=== PATIENT | female | born 1960 | race Two or more races ===

== ENCOUNTER 2022-02-26 17:40 | Inpatient (IN) | payer OTHER ==
[~2022-02-26] VITALS: Ht 172.7 cm; Wt 104.3 kg
[2022-02-26 18:05] LABS: BASOPHILS % (AUTO) 0.4 % (0.0-2.0); EOSINOPHILS % (AUTO) 2.4 % (0.0-6.0); HEMATOCRIT 37 % (33-45); HEMOGLOBIN 11.6 g/dL (11.5-14.8); LYMPHOCYTES # (AUTO) 1.2 K/uL (0.8-4.8); LYMPHOCYTES % (AUTO) 19.9 % (20.0-44.0); MEAN CORPUSCULAR HGB CONC 31 g/dl (31.0-36.0); MEAN CORPUSCULAR VOLUME 91 fL (82-100); MONOCYTES # (AUTO) 0.4 K/uL (0.1-1.30); MONOCYTES % (AUTO) 6.7 % (2.0-12.0); NEUTROPHILS # (AUTO) 4.3 K/uL (1.8-8.9); NEUTROPHILS % (AUTO) 70.6 % (43.0-81.0); PLATELET COUNT (AUTO) 120 K/uL (150-450); RED BLOOD CELL COUNT(AUTO) 4.08 MIL/uL (4.0-5.2); WHITE BLOOD COUNT (AUTO) 6.1 K/uL (4.3-11.0)
--- NOTE | 2022-02-26 18:10 | NUR ---
COVID TEST COLLECTED AND SENT
[2022-02-26 18:26] LABS: SERUM AMMONIA 32 umol/L (11-32)
--- NOTE | 2022-02-26 18:26 | NUR ---
PT CHANGED FROM NONREBREATHER TO NASAL CANULA PER DR KAMINSKI ORDERS, PT TOLERATING WELL AT 6L
--- NOTE | 2022-02-26 18:29 | NUR ---
URINE COLLECTED AND SENT
[2022-02-26 18:31] LABS: ALANINE AMINOTRANSFERASE 11 U/L (12-78); ALBUMIN 3.3 g/dL (3.4-5.0); ALCOHOL, BLOOD < 3 mg/dL (0-0); ALKALINE PHOSPHATASE 54 U/L (46-116); ASPARTATE AMINOTRANSFERASE 16 U/L (15-37); BILIRUBIN,DIRECT 0.1 mg/dL (0.0-0.2); BILIRUBIN,TOTAL 0.5 mg/dL (0.2-1.0); CALCIUM, SERUM 8.6 mg/dL (8.5-10.1); CARBON DIOXIDE 27 mmol/L (21-32); CHLORIDE 98 mmol/L (98-107); CREATININE 1.1 mg/dL (0.6-1.3); GLUCOSE 115 mg/dL (74-106); SODIUM SERUM 133 mmol/L (136-145); TOTAL PROTEIN, SERUM 6.9 g/dL (6.4-8.2); UREA NITROGEN, BLOOD 15 mg/dL (7-18)
[2022-02-26] MEDS ORDERED: DIVA125C5 PO (18:31)
[2022-02-26] MEDS ORDERED: OMEP20CA15 PO (18:31)
[2022-02-26] MEDS ORDERED: METH-649 PO (18:31)
[2022-02-26] MEDS ORDERED: CHOL100043 PO (18:31)
[2022-02-26] MEDS ORDERED: LEVO75TA99 PO (18:31)
[2022-02-26] MEDS ORDERED: RISP0.2515 PO (18:31)
[2022-02-26 18:46] LABS: BILIRUBIN,URINE NEGATIVE (NEGATIVE); COLOR,URINE YELLOW (YELLOW); LEUKOCYTE ESTERASE ,URINE NEGATIVE (NEGATIVE); NITRITE, URINE NEGATIVE (NEGATIVE); PH,URINE 6.5 (5.0-8.0); PROTEIN,URINE TRACE mg/dl (NEGATIVE); UGLUCOSE NEGATIVE (NEGATIVE); UROBILINOGEN,URINE 0.2 EU/dL (0.2)
--- NOTE | 2022-02-26 18:58 | NUR ---
CALLED [facility] INTAKE REGARDING IF THE PT IS ABLE TO STAY. WILL RECEIVE A CALL BACK REGARDING INSURANCE ACCEPTANCE
[2022-02-26 19:20] LABS: THYROID STIMULATING HORMONE 1.248 uIU/mL (0.358-3.74)
--- NOTE | 2022-02-26 19:23 | NUR ---
PEPPER IN [facility] [address] [place] [address]
[2022-02-26 19:26] LABS: BACTERIA,URINE Many /HPF (None Seen); RBC,URINE 21-50 /HPF (0-2); SQUAMOUS EPITHELIAL CELL,UR Few /HPF (None Seen); WBC,URINE 0-2 /HPF (0-3)
--- NOTE | 2022-02-26 21:59 | NUR ---
report given to yvan cornejo for kena
[2022-02-26 22:15] VITALS: BP 113/63
--- NOTE | 2022-02-26 22:15 | NUR ---
RN NOTE: ADMITTED A 61-Y/O, FEMALE, FROM [facility], ORIGINALLY PT CAME FROM [facility] [place]. ADMITTED ON A 5150 HOLD FOR GD. PER HOLD, PT WAS CONFUSED, DISORGANIZED, UNABLE TO PROVIDE VIABLE PLAN OF SELF CARE. UPON FACE TO FACE EVALUATION, PATIENT IS ALERT AND ORIENTED X1-2, COOPERATIVE TO CARE, CONFUSED, DISORGANIZED AND FLAT AFFECT. SKIN ASSESSMENT DONE. PT UNABLE TO SIGN ADMISSION PAPERWORK DUE TO CONFUSION. ALL BELONGINGS WERE SCREENED FOR CONTRABAND. PATIENT'S RIGHTS WERE DISCUSSED AND BOOKLET WAS GIVEN. CONTACTED DR. ALLISON AND HOSPITALIST DR. ALMANZA INFORMED THEM OF THE ADMISSION. SAFETY PRECAUTIONS MAINTAINED. WILL CONTINUE TO MONITOR Q15MIN ROUNDS FOR SAFETY AND BEHAVIOR.
[2022-02-26] MEDS ORDERED: MAG HYDROX/AL HYDROX/SIMETH 30 ML UDC PO PRN (22:30)
[2022-02-26] MEDS ORDERED: BLOOD SUGAR DIAGNOSTIC 1 EACH STRIP IN ONE (22:30)
[2022-02-26] MEDS ORDERED: clonazePAM 0.5 MG TABLET PO PRN (22:30)
[2022-02-26] MEDS ORDERED: ACETAMINOPHEN 325 MG TABLET PO PRN (22:30)
[2022-02-26] MEDS ORDERED: MAGNESIUM HYDROXIDE 30 ML UDC PO PRN (22:30)
[2022-02-27 08:00] VITALS: BP 134/71
[2022-02-27] MEDS: LEVOTHYROXINE SODIUM 75 MCG TABLET PO SCH (08:02)
[2022-02-27] MEDS: PANTOPRAZOLE 40 MG TABLET.DR PO SCH (08:02)
[2022-02-27] MEDS: CHOLECALCIFEROL 1,000 UNIT TABLET (VIT D3) PO SCH (08:20)
[2022-02-27] MEDS: Z GUARD REMEDY 4 OZ OINT TP SCH ×2 (08:20→21:42)
[2022-02-27] MEDS ORDERED: risperiDONE 0.25 MG TABLET PO SCH (09:00)
--- NOTE | 2022-02-27 09:15 | NUR ---
Treatment Plan: Pt refused to sign treatment plan and was suspicious.
--- NOTE | 2022-02-27 09:15 | NUR ---
UR Note: This journalists and other writers received a call from KRISTOFER Lenz ([phone]) bilingual case manager who stated that pt is authorized until 02/28/22 with review due on 02/28/22. Auth #[id number].
--- NOTE | 2022-02-27 09:38 | NUR ---
JONATHAN Initial Discharge Note: Pt was reside at [facility] [address] [place] [address] ([phone]). JONATHAN attempted to contacted facility and spoke with Silvia who stated that pt is welcomed back upon discharge. JONATHAN will contact pt's sister Jazmin ([phone]) to discuss treatment/discharge plan. JONATHAN will work with family, pt, and MD to help coordinate appropriate discharge.
--- NOTE | 2022-02-27 10:00 | NUR ---
RN-CO: BOO Henry MADE AWARE OF PT'S UA , WITH NOW NEW ORDER AT THIS TIME.
--- NOTE | 2022-02-27 10:02 | NUR ---
JONATHAN Clinical Note: Pt placed on a 5150 hold for GD. Per hold, pt has been extremely confused at her assisted living and has been hyperverbal. Pt was resides at [facility] [address] [facility] [place] [address] ([phone]). JONATHAN attempted to contacted facility and spoke with Silvia who stated that pt is welcomed back upon discharge.
[2022-02-27] MEDS: DIVALPROEX SODIUM 125 MG CAP.SPRINK PO SCH ×2 (10:11→17:18)
--- NOTE | 2022-02-27 10:54 | NUR ---
JONATHAN Family Note: JONATHAN contacted pt's sister Jazmin ([phone]) and discussed treatment/discharge plan. Sister Jazmin stated that she would want pt back to [facility] living and will pay for [employer] transportation.
[2022-02-27 12:50] LABS: CREATININE 1.2 mg/dL (0.6-1.3)
[2022-02-27 16:00] VITALS: BP 100/55
[2022-02-27 20:00] VITALS: BP 99/50
[2022-02-27 20:19] VITALS: BP 89/50
--- NOTE | 2022-02-27 20:26 | NUR ---
RN OPENING NOTES: RECEIVED PATIENT IN BED , AWAKE VERBALLY RESPONSIVE, BED IN LOW POSITION, NO COMPLAIN OF PAIN AND DISCOMFORT AT THIS TIME ,ON ROOM AIR SATURATING WELL, NO SOB WAS OBSERVED, NO BEHAVIORAL CHANGES HAS BEEN OBSERVED, KEPT CLEAN AND DRY ALL NEEDS MET, CONTINUE TO MONITOR.
[2022-02-27] MEDS ORDERED: DIVALPROEX SODIUM 125 MG TABLET.DR PO SCH (21:00)
[2022-02-27] MEDS: METHOCARBAMOL (750MG) 750 MG TABLET PO SCH (21:39)
[2022-02-27] MEDS: OLANZAPINE 5 MG TABLET PO SCH (21:39)
[2022-02-28 08:00] VITALS: BP 99/60
--- NOTE | 2022-02-28 08:16 | NUR ---
UR Note: This marine underwriter received a call from KRISTOFER Lenz ([phone]) home health care case manager who stated that pt is authorized until 02/28/22 with review due on 02/28/22. Auth #[id number]. SW received a call from Yoanna who authorized until 03/01/2022 with review due.
[2022-02-28] MEDS: LEVOTHYROXINE SODIUM 75 MCG TABLET PO SCH (08:46)
[2022-02-28] MEDS: CHOLECALCIFEROL 1,000 UNIT TABLET (VIT D3) PO SCH (08:46)
[2022-02-28] MEDS: DIVALPROEX SODIUM 125 MG CAP.SPRINK PO SCH ×2 (08:46→16:29)
[2022-02-28] MEDS: PANTOPRAZOLE 40 MG TABLET.DR PO SCH (08:47)
--- NOTE | 2022-02-28 08:55 | NUR ---
UR Note: This newswriter received a call from KRISTOFER Lenz ([phone]) renal case manager who stated that pt is authorized until 02/28/22 with review due on 02/28/22. Auth #[id number]. SW contacted Yoanna and left a detailed voicemail of pt's clinicals and requested a call back to see how many days pt is authorized for.
[2022-02-28] MEDS: Z GUARD REMEDY 4 OZ OINT TP SCH ×2 (09:29→21:12)
[2022-02-28 16:00] VITALS: BP 110/67
--- NOTE | 2022-02-28 17:45 | NUR ---
RN-NOTES PATIENT ISOLATIVE STAYS IN THE ROOM THIS SHIFT,REFUSED TO ATTEND GROUPS DESPITE ENCOURAGEMENT,A/O X1,GUARDED,NO ACUTE DISTRESS NOTED. COMPLIANT WITH MEDICATIONS. NEED MAXIMUM ASSIST WITH ADL'S.ENCOURAGED AND HELP REPOSITIONED Q2 HR. ALL NEEDS ATTENDED AND ANTICIPATED. WILL CONT. MONITORING FOR SAFETY AND BEHAVIOR.WILL ENDORSE TO THE NEXT SHIFT FOR CONTINUITY OF CARE.
--- NOTE | 2022-02-28 19:30 | NUR ---
GPS RN NOTE, RECEIVED PATIENT AWAKE AND IN BED, NO S/S OR COMPLAINTS OF PAIN AT THIS TIME. PATIENT IS DISPLAYING NO S/S OF APPARENT DISTRESS AT THIS TIME. PATIENT BREATHING IS UNLABORED WITH EQUAL RISE AND FALL OF THE CHEST. PATIENT IS ALERT AND ORIENTED X 2 ON ROOM AIR WITH A SPO2 95%. PATIENT IS COMPLIANT WITH MEDICATIONS, CONFUSED AT TIMES, FORGETFUL, DISORGANIZED, CALM, AND COOPERATIVE. PATIENT DENIES SUICIDAL AND HOMICIDAL IDEATIONS AT THIS TIME. PATIENT ASSISTED WITH TURNING AND REPOSITIONING Q2HR AND PRN FOR COMFORT AND CIRCULATION. PATIENT HAS NO NEEDS AT THIS TIME. PATIENT EDUCATED ON THE USE OF THE CALL BURRELL. PATIENT BED SIDE RAILS UP X 2 FOR SAFETY. PATIENT BED IS LOCKED AND LOW. WILL CONTINUE TO MONITOR THIS PATIENT Q15 MINUTES WITH THE HELP OF STAFF TO MAINTAIN SAFETY.
[2022-02-28 20:00] VITALS: BP 102/57
[2022-02-28] MEDS: OLANZAPINE 5 MG TABLET PO SCH (21:31)
[2022-02-28] MEDS: METHOCARBAMOL (750MG) 750 MG TABLET PO SCH (21:31)
[2022-03-01] MEDS: PANTOPRAZOLE 40 MG TABLET.DR PO SCH (07:48)
[2022-03-01] MEDS: CHOLECALCIFEROL 1,000 UNIT TABLET (VIT D3) PO SCH (07:48)
[2022-03-01] MEDS: LEVOTHYROXINE SODIUM 75 MCG TABLET PO SCH (07:48)
[2022-03-01] MEDS: Z GUARD REMEDY 4 OZ OINT TP SCH ×2 (07:49→20:58)
[2022-03-01] MEDS: DIVALPROEX SODIUM 125 MG CAP.SPRINK PO SCH ×2 (07:49→16:54)
[2022-03-01 08:00] VITALS: BP 144/85
--- NOTE | 2022-03-01 08:16 | NUR ---
UR Note: This rewriter received a call from KRISTOFER Lenz ([phone]) caseworker intake who stated that pt is authorized until 03/01/22 with review due on 03/01/22. Auth #[id number]. SW spoke with Yoanna caseworker intake and gave verbal clinicals she stated that she will contact this rewriter with auth bethany.
--- NOTE | 2022-03-01 09:39 | NUR ---
Facility Contact: JONATHAN contacted [facility] [address], [place] [address] ([phone]) and spoke with Silvia flores ([phone]) and stated pt will possibly be ready for dc next week early Sunday 03/05 and she stated pt will be welcomed back if ready.
--- NOTE | 2022-03-01 10:12 | NUR ---
[employer] Transportation: SW contacted [employer] ([phone]) spoke with Lonnie and scheduled transportation for Sunday 03/05 with john with cost of $224. Pt's sister Jazmin ([phone]) will make payment.
--- NOTE | 2022-03-01 10:13 | NUR ---
JONATHAN Family Contact: JONATHAN contacted pt's sister Jazmin ([phone]) and notified to make payment of [employer] transportation of $244.00. She will be contacting [employer] to make the payment.
--- NOTE | 2022-03-01 10:20 | NUR ---
JONATHAN Family Contact: Sister Jazmin ([phone]) contacted this screen writer requesting to speak to the doctor about pt's diagnosis. JONATHAN notified Dr. Putnam.
--- NOTE | 2022-03-01 13:51 | NUR ---
UR Note: This newswriter received a call from KRISTOFER Lenz ([phone]) family preservation caseworker who stated that pt is authorized until 03/04/22 with review due on 03/04/22. Auth #[id number].
[2022-03-01 16:00] VITALS: BP 141/84
--- NOTE | 2022-03-01 19:58 | NUR ---
RN NOTE: PT IN ROOM RESTING A/O X2 . EASILY AROUSABLE. BREATHING EVEN AND UNLABORED. PT. GUARDED, CONFUSED, FLAT AFFECT,DISORGANIZED ,COOPERTIVE TO CARE . MED COMPLIANT ENCOURAGED PT TO VERBALIZE FEELING AND CONCERN . SAFETY PRECAUTIONS MAINTAINED , WILL CONTINUE TO MONITOR FOR SAFETY.
[2022-03-01 20:59] VITALS: BP 107/58
[2022-03-01] MEDS: OLANZAPINE 5 MG TABLET PO SCH (21:02)
[2022-03-01] MEDS: METHOCARBAMOL (750MG) 750 MG TABLET PO SCH (21:02)
--- NOTE | 2022-03-02 01:21 | NUR ---
GPS RN NOTE, PATIENT HAS A COMPLAINT OF COUGH AND IS REQUESTING LOZENGE AND COUGH MEDICINE. PATIENT TEMP IS 98.5, LUNGS ARE CLEAR TO AUSCULTATION, AND SPO2 95 % ON ROOM AIR. PATIENT HAD A CHEST X-RAY AND COVID TEST ON 02/26/22. PAGED [facility] AND INFORMED KALIN ALMANZA DO OF MY FINDINGS. KALIN ALMANZA DO ORDERED ROBITUSSIN DM 5ML PO Q4HR PRN AND CEPACOL 1 HARLEY PO Q2HR PRN. ALL ORDERS NOTED AND CARRIED OUT. WILL CONTINUE TO MONITOR THIS PATIENT WITH THE HELP OF STAFF.
[2022-03-02] MEDS ORDERED: MENTHOL/CETYLPYRD (CEPACOL) 1 LOZ LOZENGE PO PRN (01:30)
[2022-03-02 08:00] VITALS: BP 132/69
[2022-03-02] MEDS: CHOLECALCIFEROL 1,000 UNIT TABLET (VIT D3) PO SCH (08:24)
[2022-03-02] MEDS: LEVOTHYROXINE SODIUM 75 MCG TABLET PO SCH (08:25)
[2022-03-02] MEDS: Z GUARD REMEDY 4 OZ OINT TP SCH ×2 (08:25→21:32)
[2022-03-02] MEDS: PANTOPRAZOLE 40 MG TABLET.DR PO SCH (08:25)
[2022-03-02] MEDS: DIVALPROEX SODIUM 125 MG CAP.SPRINK PO SCH ×2 (08:25→16:33)
[2022-03-02 16:00] VITALS: BP_SYST 120; BP_SYST 127; BP_DIAS 68; BP_DIAS 83
[2022-03-02] MEDS: GUAIFENESIN/D-METHORPHAN HB 5 ML UDC PO PRN (19:44)
--- NOTE | 2022-03-02 19:44 | NUR ---
GPS RN NOTE, PATIENT HAS A COMPLAINT OF COUGH AND IS REQUESTING ROBITUSSIN AND CEPACOL AT THIS TIME. PATIENT VITAL SIGNS ARE STABLE. GAVE ROBITUSSIN DM 5ML 1 UNIT DOSE PO Q4HR PRN. GAVE CEPACOL 1 HARLEY PO Q2HR PRN ORDERED. WILL REASSESS PATIENT AND I WILL CONTINUE TO MONITOR THIS PATIENT WITH THE HELP OF STAFF.
--- NOTE | 2022-03-02 20:04 | NUR ---
GPS RN NOTE, RECEIVED PATIENT AWAKE AND IN BED, NO S/S OR COMPLAINTS OF PAIN AT THIS TIME. PATIENT IS DISPLAYING NO S/S OF APPARENT DISTRESS AT THIS TIME. PATIENT BREATHING IS UNLABORED WITH EQUAL RISE AND FALL OF THE CHEST. PATIENT IS ALERT AND ORIENTED X 2 ON ROOM AIR WITH A SPO2 95%. PATIENT IS COMPLIANT WITH MEDICATIONS, CONFUSED AT TIMES, FORGETFUL, DISORGANIZED, POLITE, PLEASANT, CALM, AND COOPERATIVE. PATIENT DENIES SUICIDAL AND HOMICIDAL IDEATIONS AT THIS TIME. PATIENT ASSISTED WITH TURNING AND REPOSITIONING Q2HR AND PRN FOR COMFORT AND CIRCULATION. PATIENT HAS NO NEEDS AT THIS TIME. PATIENT EDUCATED ON THE USE OF THE CALL BURRELL. PATIENT BED SIDE RAILS UP X 2 FOR SAFETY. PATIENT BED IS LOCKED AND LOW. WILL CONTINUE TO MONITOR THIS PATIENT Q15 MINUTES WITH THE HELP OF STAFF TO MAINTAIN SAFETY.
[2022-03-02 20:51] VITALS: BP 121/73
[2022-03-02] MEDS: METHOCARBAMOL (750MG) 750 MG TABLET PO SCH (21:31)
[2022-03-02] MEDS: OLANZAPINE 5 MG TABLET PO SCH (21:31)
[2022-03-03 08:00] VITALS: BP 124/66
[2022-03-03] MEDS: PANTOPRAZOLE 40 MG TABLET.DR PO SCH (08:08)
[2022-03-03] MEDS: LEVOTHYROXINE SODIUM 75 MCG TABLET PO SCH (08:08)
[2022-03-03] MEDS: DIVALPROEX SODIUM 125 MG CAP.SPRINK PO SCH ×2 (08:08→16:54)
[2022-03-03] MEDS: CHOLECALCIFEROL 1,000 UNIT TABLET (VIT D3) PO SCH (08:08)
[2022-03-03] MEDS: Z GUARD REMEDY 4 OZ OINT TP SCH ×2 (08:08→21:06)
[2022-03-03 16:00] VITALS: BP 108/70
[2022-03-03 20:49] VITALS: BP 119/79
[2022-03-03] MEDS: OLANZAPINE 5 MG TABLET PO SCH (21:07)
[2022-03-03] MEDS: METHOCARBAMOL (750MG) 750 MG TABLET PO SCH (21:07)
[2022-03-03] MEDS: TEMAZEPAM 7.5 MG CAPSULE PO PRN (21:11)
--- NOTE | 2022-03-03 21:14 | NUR ---
Pt c/o insomnia. Least restrictive measures ineffective. Restoril 7.5 mg po prn given as ordered. Will continue to monitor.
--- NOTE | 2022-03-03 22:13 | NUR ---
Post 1 hr Restoril effective. Pt asleep in bed easy to arouse. Frequent visual check done for safety. Bed at low positioned and bed alarm on. Will continue to monitor. Will endorse to next shift.
[2022-03-04] MEDS: GUAIFENESIN/D-METHORPHAN HB 5 ML UDC PO PRN (06:17)
--- NOTE | 2022-03-04 06:18 | NUR ---
Pt with cough and unable to stop coughing. Robitussin DM syrup 5ml po prn given as ordered. Will continue to monitor.
[2022-03-04 08:00] VITALS: BP 138/79
[2022-03-04] MEDS: LEVOTHYROXINE SODIUM 75 MCG TABLET PO SCH (08:00)
[2022-03-04] MEDS: PANTOPRAZOLE 40 MG TABLET.DR PO SCH (08:00)
[2022-03-04] MEDS: DIVALPROEX SODIUM 125 MG CAP.SPRINK PO SCH ×2 (08:56→16:13)
[2022-03-04] MEDS: CHOLECALCIFEROL 1,000 UNIT TABLET (VIT D3) PO SCH (08:58)
[2022-03-04] MEDS: Z GUARD REMEDY 4 OZ OINT TP SCH ×2 (10:31→21:14)
--- NOTE | 2022-03-04 11:36 | NUR ---
UR Note: This physician underwriter contacted case briefer from KRISTOFER Lenz ([phone]) Auth #[id number] and gave clinical updates of 03/04 and notified of her dc back to [facility] 03/05.
[2022-03-04 16:00] VITALS: BP 113/71
[2022-03-04 20:09] VITALS: BP 106/63
[2022-03-04] MEDS: METHOCARBAMOL (750MG) 750 MG TABLET PO SCH (21:14)
[2022-03-04] MEDS ORDERED: OLANZAPINE 5 MG TABLET PO SCH (22:00)
[2022-03-04] MEDS: TEMAZEPAM 7.5 MG CAPSULE PO PRN (22:10)
[2022-03-05] MEDS: PANTOPRAZOLE 40 MG TABLET.DR PO SCH (07:57)
[2022-03-05] MEDS: LEVOTHYROXINE SODIUM 75 MCG TABLET PO SCH (07:57)
[2022-03-05 08:00] VITALS: BP 125/68
--- NOTE | 2022-03-05 08:09 | NUR ---
Discharge Note: Pt will be discharged back to [facility] [address] [place] [address] ([phone]). [employer] ([phone]) will lease picker pt between 2-2:30PM. Patients sister Jazmin ([phone]) is aware and agreeable. Pt is happy to be going back to her assisted living. Pt is alert and oriented x2. Pt denies suicidal or homicidal ideation. Pt denies visual/auditory hallucinations. Pt will follow up with [facility], Dr. Gabriele Awad located at [address] [place] [address], [place] [address]; ([phone], ) who will provide and monitor pts anti-psychotic medications. Pt presents with euthymic mood and congruent affect.
[2022-03-05] MEDS: CHOLECALCIFEROL 1,000 UNIT TABLET (VIT D3) PO SCH (08:47)
[2022-03-05] MEDS: DIVALPROEX SODIUM 125 MG CAP.SPRINK PO SCH (08:47)
[2022-03-05] MEDS: Z GUARD REMEDY 4 OZ OINT TP SCH (09:22)
--- NOTE | 2022-03-05 15:31 | NUR ---
R N DISCHARGE NOTES PATIENT IS WITH ORDER FOR DISCHARGE TO [facility] , ALL DISCHARGE PREPARED AND DISCHARGE INSTRUCTIONS PROVIDED REGARDING MEDICATION COMPLIANCE , SAFETY AND TO REPORT FOR ANY BEHAVIORAL CHANGES AND PATIENT UNDERSTOOD D/C INSTRUCTIONS PROVIDED, ALERT AND ORIENTED AND WAS ABLE TO SIGN THE DISCHARGE INSTRUCTIONS PROVIDED , PATIENT DENIES ANY SUICIDAL AND HOMICIDAL IDEATION , DENIES VISUAL OR AUDITORY HALLUCINATIONS , AWARE ABOUT THE PCP FOLLOW UP APPT WITH DR DESAI , ALL BELONGINGS WAS BROUGHT BY THE PATIENT , SUCCESSFACTORS CONSULTANT BY AMBULANCE VIA GURNEY WITH EMT PERSONNEL , PATIENT WAS IN A STABLE CONDITION WHEN DISCHARGE FORM THE UNIT AND LEFT AROUND 1455 .
== END 2022-03-05 14:55 | DRG 885 ==
LOC: ER 17:44 → GPS 21:49
PROVIDERS: ADMIT Psychiatry & Neurology Psychiatry; ATTEND Nurse Practitioner Acute Care
DX: F31.64 Bipolar disorder, current episode mixed, severe, with psychotic features (principal); G93.41 Metabolic encephalopathy; F03.92 Unspecified dementia, unspecified severity, with psychotic disturbance; F29 Unspecified psychosis not due to a substance or known physiological condition; E03.9 Hypothyroidism, unspecified; E66.9 Obesity, unspecified; K21.9 Gastro-esophageal reflux disease without esophagitis; Z87.11 Personal history of peptic ulcer disease; Z79.01 Long term (current) use of anticoagulants; F31.89 Other bipolar disorder; Z73.6 Limitation of activities due to disability; F41.9 Anxiety disorder, unspecified; Z85.841 Personal history of malignant neoplasm of brain; Z68.35 Body mass index [BMI] 35.0-35.9, adult; G40.909 Epilepsy, unspecified, not intractable, without status epilepticus; Z20.822 Contact with and (suspected) exposure to COVID-19
CPT/HCPCS: 36415; 70450-TC; 71045-TC; 80048-TC; 80061-TC; 80076-TC; 80164-TC; 81001; 82140-TC; 82565-TC; 82962-TC; 84443-TC; 84484-TC; 85025-TC; 85730-TC; 87081-TC; 87086-TC; 97110-TC; 97112-TC; 97116-TC; 97530-TC; C9803; G0480